=== PATIENT | male | born 2000 | race Caucasian/White ===

== ENCOUNTER 2023-10-04 15:22 | Emergency (ER) | payer OTHER, SELFPAY ==
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
[2023-10-04 15:32] VITALS: BP 154/92; PULSE 89; RESP 20; TEMP 36.6; O2SAT 97
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
== END 2023-10-04 16:32 | disposition home or self-care (01) ==
PROVIDERS: Emergency Provider Registered Nurse
DX: S63.502A Unspecified sprain of left wrist, initial encounter (principal); S66.912A Strain of unspecified muscle, fascia and tendon at wrist and hand level, left hand, initial encounter; V28.49XA Other motorcycle driver injured in noncollision transport accident in traffic accident, initial encounter; E66.9 Obesity, unspecified; Z68.38 Body mass index [BMI] 38.0-38.9, adult; L40.9 Psoriasis, unspecified
CPT/HCPCS: 73110; 99203; G0463